=== PATIENT | male | born 1960 | race Hispanic/Latino ===

== ENCOUNTER 2019-04-22 21:37 | Observation (INO) | payer SELFPAY ==
[2019-04-22] MEDS ORDERED: Lorazepam 2 MG/ML VIAL ONE (22:21)
[2019-04-22 23:51] VITALS: BMI 27.3
[2019-04-23] MEDS ORDERED: Ondansetron ODT 4 MG TAB PO PRN (01:59)
[2019-04-23] MEDS ORDERED: Acetaminophen 650 MG Suppository PR PRN (01:59)
[2019-04-23] MEDS ORDERED: Acetaminophen 325 MG TAB PO PRN (01:59)
[2019-04-23] MEDS ORDERED: Ondansetron PF 4 MG/2 ML Vial IVP PRN (01:59)
[2019-04-23] MEDS ORDERED: Dextrose 5% in Water 1,000 ML IV PRN (04:49)
[2019-04-23] MEDS ORDERED: Dextrose 50% Abboject 50 ML SYRINGE SLOW IVP PRN (04:49)
[2019-04-23 04:53] LABS: #Basophils 0.1 thou/uL (0.0-0.2); #Lymphocytes 1.7 thou/uL (1.20-3.40); #Monocytes 0.4 thou/uL (0.11-0.59); %Basophils 0.7 % (0.0-1.0); %Eosinophils 0.5 % (0.0-10.0); %Lymphocytes 23.4 % (21.0-51.0); %Neutrophils 70.4 % (42.0-75.0); Hemoglobin 13.6 g/dL (14.0-18.0); Mean Corpuscular HGB CONC 34.9 g/dL (32.0-36.0); Mean Corpuscular Hemoglobin 29.4 pg (27.0-31.0); Mean Corpuscular Volume 84.5 fL (78.0-98.0); Platelet Count 324 thou/uL (130-400); RBC Distribution Width 12.3 % (11.5-14.5); Red Blood Cell (RBC) Count 4.63 mill/uL (4.70-6.10); White Blood Cell (WBC) Count 7.2 thou/uL (4.8-10.8)
--- NOTE | 2019-04-23 05:15 | HP ---
PRIMARY CARE DOCTOR: The patient has no PCP. CODE STATUS: Full code. TIME OF EVALUATION: 1:45 a.m. CHIEF COMPLAINT: Dizziness. HISTORY OF PRESENT ILLNESS: This 58-year-old male patient came from [facility]. The patient was having dizziness that started suddenly at 6:06 p.m. today with no clear triggers, no alleviating factors. The patient was unable to stand due to the nausea and vomiting caused by the dizziness worsened by standing up. These symptoms have been present in the past month, but had improved by itself. Symptoms were severe. REVIEW OF SYSTEMS: All systems reviewed were negative except for the findings mentioned above. No other systems show any positive findings. PAST MEDICAL HISTORY: Positive for diabetes, hypertension, and hyperlipidemia. PAST SURGICAL HISTORY: No surgical history. PSYCH HISTORY: No previous psych history. SOCIAL HISTORY: The patient drinks socially every week. The patient denies any drug use. The patient has no smoking history. FAMILY HISTORY: No family history. KNOWN ALLERGIES: No known drug allergies reported. MEDICATIONS: No reported medications. PHYSICAL EXAMINATION: VITAL SIGNS: On presentation, blood pressure 150/86, heart rate 97, respiratory rate 16, temperature 97.9, pain was 0/10, and oxygen saturation 94% on room air. GENERAL APPEARANCE: The patient is alert, oriented, in no acute distress. HEENT: Eyes, normal conjunctivae. Moist oral mucosa. Anicteric. NECK: No JVD. RESPIRATORY: Bilateral air entry. No rales. No wheezes. Symmetric expansion. CARDIOVASCULAR: Normal rate. Regular rhythm. No murmurs. No gallop. No edema. ABDOMEN: Soft. Normal bowel sounds. MUSCULOSKELETAL: Baseline range of motion and strength. SKIN: Warm and intact. No pallor. No rash. No redness. Capillary refill seems to be intact. NEURO: No evidence of any new focal weakness. No ataxia. The patient has been complaining of dizziness. PSYCH: The patient is in good mood. No anxiety. Optimal judgment. LABORATORY DATA: Labs were reviewed. Hematology was normal. The blood gas with pH in the VBG was 7.42. The chemistry, sodium 131, potassium 4.1, carbon dioxide 21, creatinine 0.9, glucose . Brain CT was done. No acute intracranial findings. ASSESSMENT AND PLAN: The patient will be placed in the hospital with the following medical problems; 1. Persistent dizziness, rule out posterior fossa stroke. We will monitor in the stroke unit. We will order a stroke workup. We will follow the result. 2. Uncontrolled diabetes. We will place the patient on sliding scale. Reconcile home medications. Low carb diet is recommended. 3. Uncontrolled hypertension. The patient has systolic blood pressure of 151, came down to 90s. Reconcile home medications. Adjust treatment as needed. 4. Deep venous thrombosis prophylaxis. Job ID: [id number]
[2019-04-23 05:16] LABS: Anion Gap 14 mmol/L (10-20); BUN (Urea Nitrogen) 17 mg/dL (8.4-25.7); Calc. Creatinine Clearance 111 mL/min (70-130); Calcium 8.6 mg/dL (7.8-10.44); Carbon Dioxide 23 mmol/L (22-29); Cardiac Risk 5.3 (Less than 4.5); Chloride 101 mmol/L (98-107); Cholesterol 185 mg/dl (< 200 Desired); Estimated GFR-MDRD Greater than 90; Glucose 271 mg/dL (70-105); HDL Cholesterol 35 mg/dL (>60 Neg Risk); LDL Cholesterol, Calculated 91 mg/dL; Potassium 3.7 mmol/L (3.5-5.1); Sodium 134 mmol/L (136-145); Triglycerides 293 mg/dL (Less than 150)
[2019-04-23] MEDS: HumaLOG 300 UNITS/3 ML VIAL SC PRN ×3 (05:54→18:16)
[2019-04-23] MEDS ORDERED: QUINAPRIL HCL 40 MG PO SCH (09:00)
[2019-04-23] MEDS ORDERED: Non-Formulary Item 1 EACH (Insulin Detemir [Levemir] 10 UNIT) SQ SCH (09:00)
[2019-04-23] MEDS ORDERED: metFORMIN 500 MG TAB PO SCH (09:00)
[2019-04-23] MEDS ORDERED: Insulin Glargine 10 UNITS in Pre-Filled Syringe 1 EACH SC SCH (09:00)
--- NOTE | 2019-04-23 09:20 | MRI ---
MRI Brain WO Con: 04/23/2019 1:12 AM CLINICAL HISTORY: Stroke, dizziness. COMPARISON: Head CT previous day FINDINGS: Extra axial spaces: Normal in size and morphology for the patient's age. Acute infarction: None. Ventricular system: Normal in size and morphology for the patient's age. Basal cisterns: Normal. Cerebral parenchyma: Microvascular ischemic changes. Midline shift: None. Cerebellum: Normal. Brainstem: Normal. Paranasal sinuses:Scattered mucosal thickening. IMPRESSION:No acute intracranial abnormality.
[2019-04-23] MEDS: Enoxaparin Sodium 40 MG/0.4 ML SYRINGE SC SCH (09:27)
[2019-04-23] MEDS: Lisinopril 20 MG TAB PO SCH (09:28)
[2019-04-23] MEDS: Amlodipine 10 MG TAB PO SCH (09:28)
[2019-04-23] MEDS ORDERED: Meclizine HCl 25 MG TAB PO PRN (11:46)
--- NOTE | 2019-04-23 11:51 | PDOC.EVN ---
Event Note - Event Note Event Note: Patient examined. No vertigo. EOMI. Heart RRR, No M, Lungs CTA. Abd. benign. Still reports some mild nausea with trying to get up due to dizziness. He does feel a little better today than yesterday. MRI negative. Dx: BPPV. Will initiate Meclizine and have PT get him up. If he does ok, he can discharge.
[2019-04-23] MEDS ORDERED: Meclizine HCl 25 MG TAB PO SCH (12:00)
[2019-04-23] MEDS ORDERED: HumaLOG 300 UNITS/3 ML VIAL SC PRN (20:59)
[2019-04-23] MEDS ORDERED: Rosuvastatin 20 MG TAB PO SCH (21:00)
[2019-04-24] MEDS: HumaLOG 300 UNITS/3 ML VIAL SC PRN (05:56)
[2019-04-24 07:52] VITALS: BP 133/67; TEMP 98.5
[2019-04-24] MEDS: Amlodipine 10 MG TAB PO SCH (08:23)
[2019-04-24] MEDS: Enoxaparin Sodium 40 MG/0.4 ML SYRINGE SC SCH (08:23)
[2019-04-24] MEDS: Lisinopril 20 MG TAB PO SCH (08:24)
--- NOTE | 2019-04-25 09:54 | DIS ---
DATE OF ADMISSION: 04/22/2019 DATE OF DISCHARGE: 04/24/2019 DISCHARGE DIAGNOSES: 1. Benign paroxysmal positional vertigo. 2. Diabetes mellitus. 3. Hypertension. HISTORY OF PRESENT ILLNESS: The patient is a 58-year-old male who initially presented to the emergency department in [place] with complaints of dizziness. There the patient had a workup including a negative head CT. He was given aspirin, meclizine, Zofran, and some fluids. There was concern for central vertigo; therefore, the patient was transferred to our facility to undergo MRI of the brain. HOSPITAL COURSE: The patient was placed on observation. He did have an MRI which was negative. The patient's exam noted that he was very positional in his vertigo and was subsequently started on some meclizine. The patient's symptoms improved over the following day. He was able to get up and ambulate without much difficulty and was felt to be stable for discharge to home. PHYSICAL EXAMINATION: VITAL SIGNS: Temperature 98.5, pulse 80, BP 133/67, respirations 16, O2 saturation 95% on room air. GENERAL APPEARANCE: Age-appropriate male in no distress. He was awake and alert. He had no nystagmus or other evidence of a central vertigo. HEART: He had regular rate and rhythm. LUNGS: Clear. ABDOMEN: Benign. EXTREMITIES: With no edema. DISPOSITION: The patient is discharged to home. DIET: He is to have a regular diet with his usual restrictions for diabetes. DISCHARGE MEDICATIONS: He is to be on meclizine p.r.n. He will continue with his other usual home medications. FOLLOWUP: He is encouraged to follow up with his PCP at the [facility] and he can return to the hospital should he have any problems prior to that time. Job ID: [id number]
== END 2019-04-24 10:50 | disposition home or self-care (01) ==
LOC: ERS 21:37 → 2SE 23:05
PROVIDERS: ADMIT Hospitalist; ATTEND Hospitalist
DX: H81.10 Benign paroxysmal vertigo, unspecified ear (principal); E11.9 Type 2 diabetes mellitus without complications; I10 Essential (primary) hypertension; E78.5 Hyperlipidemia, unspecified; Z79.4 Long term (current) use of insulin; Z79.899 Other long term (current) drug therapy
CPT/HCPCS: 36415; 36416; 70551; 80048; 80061; 85025; 96372; 96374; G0378; J1650; J2060; J8597

== ENCOUNTER 2025-07-04 16:41 | Observation (INO) | payer SELFPAY ==
[2025-07-04 20:48] VITALS: BMI 41.5
[2025-07-04] MEDS ORDERED: Acetaminophen 325 MG TAB PO PRN (20:56)
[2025-07-04] MEDS ORDERED: Ketorolac Tromethamine 30 MG (1 mL) VIAL IVP PRN (20:56)
[2025-07-04] MEDS ORDERED: Nitroglycerin 0.4 MG TAB (25 Tab Bottle) SL PRN (20:57)
[2025-07-04] MEDS ORDERED: Dextrose 50% Abboject 50 ML SYRINGE SLOW IVP PRN (21:19)
[2025-07-04] MEDS ORDERED: Glucagon 1 MG/ML KIT IM PRN (21:19)
[2025-07-04] MEDS: Famotidine 20 MG TAB PO SCH (21:20)
[2025-07-04 21:30] LABS: Magnesium 1.6 mg/dL (1.6-2.6)
[2025-07-04] MEDS: Insulin Glargine 30 UNITS/0.3 ML VIAL SC SCH (22:09)
[2025-07-04] MEDS: Nitroglycerin 2% Ointment 1 INCH/1 GM Packet TOP SCH (22:09)
[2025-07-05 03:55] LABS: #Basophils 0.04 10x3/uL (0.0-0.2); #Eosinophils 0.06 10x3/uL (0.0-0.7); #Monocytes 0.49 10x3/uL (0.11-0.59); #Neutrophils 3.57 10x3/uL (1.40-6.50); %Basophils 0.6 % (0.0-1.0); %Eosinophils 1.0 % (0.0-10.0); %Lymphocytes 33.4 % (21.0-51.0); %Monocytes 7.8 % (0.0-10.0); %Neutrophils 56.9 % (42.0-75.0); Hematocrit 39.4 % (42.0-52.0); Hemoglobin 12.8 g/dL (14.0-18.0); Mean Corpuscular Hemoglobin 28.1 pg (27.0-31.0); Mean Corpuscular Volume 86.4 fL (78.0-98.0); Platelet Count 303 10x3/uL (130-400); Red Blood Cell (RBC) Count 4.56 mill/uL (4.70-6.10); White Blood Cell (WBC) Count 6.28 10x3/uL (4.8-10.8)
[2025-07-05 04:11] LABS: Anion Gap 13 mmol/L (10-20); BUN (Urea Nitrogen) 20 mg/dL (8.4-25.7); Calc. Creatinine Clearance 129 mL/min (70-130); Calcium 9.1 mg/dL (7.8-10.44); Carbon Dioxide 22 mmol/L (23-31); Cardiac Risk 4.7 (Less than 4.5); Chloride 110 mmol/L (98-107); Cholesterol 131 mg/dl (< 200 Desired); Glucose 86 mg/dL (80-115); HDL Cholesterol 28 mg/dL (>60 Neg Risk); LDL Cholesterol, Calculated 46 mg/dL; Potassium 3.7 mmol/L (3.5-5.1); Sodium 141 mmol/L (136-145); Triglycerides 285 mg/dL (Less than 150)
[2025-07-05] MEDS ORDERED: Aspirin 81 mg Enteric Coated Tablet PO SCH (09:00)
[2025-07-05] MEDS: Insulin Glargine 30 UNITS/0.3 ML VIAL SC SCH (09:23)
[2025-07-05] MEDS: Aspirin 81 mg Enteric Coated Tablet PO SCH (13:26)
[2025-07-05] MEDS: Aspirin Chewable 81 MG TAB PO SCH (13:26)
[2025-07-05] MEDS: metFORMIN 500 MG TAB PO SCH (13:27)
[2025-07-05] MEDS: Lisinopril 20 MG TAB PO SCH (13:27)
[2025-07-05 15:56] VITALS: BP 148/77; TEMP 97.9
[2025-07-05] MEDS ORDERED: Rosuvastatin 20 MG TAB PO SCH (21:00)
== END 2025-07-05 18:00 | disposition home or self-care (01) ==
LOC: 2NO 17:58
PROVIDERS: ADMIT Internal Medicine; ATTEND Family Medicine
DX: R07.89 Other chest pain (principal); I10 Essential (primary) hypertension; E11.9 Type 2 diabetes mellitus without complications; E78.5 Hyperlipidemia, unspecified; Z79.84 Long term (current) use of oral hypoglycemic drugs; Z79.82 Long term (current) use of aspirin; Z79.4 Long term (current) use of insulin; Z79.899 Other long term (current) drug therapy
CPT/HCPCS: 36415; 36416; 78452; 80048; 80061; 83036; 83735; 84443; 84484; 85025; 93017; A9502; G0378; J1815; J2785